=== PATIENT | female | born 1990 | race Caucasian/White ===

== ENCOUNTER 2022-03-03 12:03 | Emergency (ER) | payer MEDICAID ==
[2022-03-03] MEDS ORDERED: diphenhydrAMINE 50 MG/ML SDV IVPUSH ONE (12:28)
[2022-03-03] MEDS ORDERED: Sodium Chloride 0.9% 10 ML Syringe FLUSH PRN (12:28)
[2022-03-03] MEDS ORDERED: Ketorolac 30 MG/ML SDV IVPUSH ONE (12:28)
[2022-03-03] MEDS ORDERED: Prochlorperazine 10 MG/2 ML SDV IVPUSH ONE (12:28)
[2022-03-03] MEDS ORDERED: Sodium Chloride 0.9% 1,000 ML IV SCH (12:30)
[2022-03-03] MEDS ORDERED: Haloperidol Lactate 5 MG/ML SDV IVPUSH ONE (14:15)
[2022-03-03] MEDS ORDERED: Dexamethasone 4 MG/ML SDV IVPUSH ONE (14:15)
[2022-03-03 15:19] VITALS: BP 108/57; PULSE 60
== END 2022-03-03 15:52 | disposition home or self-care (01) ==
LOC: JP.ED 12:03
DX: G43.009 Migraine without aura, not intractable, without status migrainosus (principal); Z88.1 Allergy status to other antibiotic agents; Z88.0 Allergy status to penicillin
CPT/HCPCS: 96361; 96374; 96375; 99283; J0780; J1100; J1200; J1630; J1885; J3490; J7030